=== PATIENT | male | born 1980 | race Caucasian/White ===

== ENCOUNTER 2020-06-19 21:56 | Emergency (ER) | payer OTHER, SELFPAY ==
--- NOTE | ~2020-06-19 | CT_ITS ---
EXAMINATION: CT abdomen pelvis w con EXAM DATE: 06/20/2020 00:27 INDICATION: Epigastric pain, RUQ TECHNIQUE: Spiral CT of the abdomen and pelvis was performed following intravenous injection of 100 m L Omnipaque 350. Axial, coronal and sagittal images were reviewed. The dose-length product (DLP) fo r this examination was 1260.28 mGy-cm. The exposure was tailored according to patient size (auto mA exposure control), and iterative reconstruction (ASIR) was used as additional dose reduction techniqu e. There is no prior study for comparison. FINDINGS: The liver, spleen, adrenal glands and pancreas are unremarkable. There are cholecystectomy clips. Portal and splenic veins are patent. Kidneys enhance symmetrically. There is no hydronephr osis. The prostate is unremarkable. The bladder is distended but otherwise unremarkable. There is no retroperitoneal or pelvic lymphadenopathy. Small umbilical and bilateral inguinal fat-containin g hernias. Small right-sided Bochdalek hernia. The appendix is normal. The stomach and small bowel are unremarkable. There is moderate amount of c olonic stool. No free intraperitoneal gas. The heart is normal in size. There are no pericardial or pleural effusions. The lung bases are unremarkable. The bones are unremarkable. IMPRESSION: 1. No acute intra-abdominal findings. Reviewed, dictated and finalized at location G. RESEARCH SCIENTIST
[2020-06-19 22:00] VITALS: BP 170/111; PULSE 97; RESP 20; TEMP 35.8; O2SAT 100
--- NOTE | 2020-06-19 22:26 | ECG_ITS ---
Measurements Intervals [place] Rate: 86 P: 44 [place]: 170 QRS: 37 QRSD: 78 T: -50 QT: 350 QTc: 420 Interpretive Statements SINUS RHYTHM POSSIBLE LEFT ATRIAL ENLARGEMENT ST-T WAVE ABNORMALITY IN ANTEROLAT/INF LEADS- CONSIDER ISCHEMIA BASELINE ARTIFACT- I, III, AVR ABNORMAL ECG Electronically Signed On 06-20-2020 6:31:19 JUNIOR LEGAL SECRETARY by Kendell Torres D.O.
[2020-06-19 22:39] LABS: Basophils Percent Auto 0.3 % (0.2-1.2); Eosinophils Absolute Auto 0.4 K/mm3 (0-0.3); Eosinophils Percent Auto 3.9 % (0-4.4); Hematocrit 43.6 % (42.0-52.0); Hemoglobin 15.3 g/dL (14.0-18.0); Immature Granulocyte Absolute 0.03 K/mm3 (0.00-0.031); Immature Granulocyte Percent A 0.3 % (0-0.5); Lymphocytes Absolute Auto 2.83 K/mm3 (0.9-3.2); Lymphocytes Percent Auto 31.4 % (18.3-44.2); Mean Corpuscular HGB Conc 35.1 g/dl (32-36); Mean Corpuscular Hemoglobin 30.4 pg (26-34); Mean Corpuscular Volume 86.7 fl (80-100); Mean Platelet Volume 10.5 fl (7.4-10.4); Monocytes Absolute Auto 0.8 K/mm3 (0.1-0.6); Monocytes Percent Auto 9.1 % (2.6-8.5); Platelet Count Result 308 k/mm3 (150-375); Red Blood Count 5.03 M/mm3 (4.6-6.20); Red Cell Distribution Width 11.9 % (11.5-14.5)
[2020-06-19 22:53] LABS: Alanine Aminotransferase 38 U/L (4-50); Albumin Level 4.8 g/dL (3.5-5.1); Alkaline Phosphatase 55 U/L (38-126); Anion Gap 10 mmol/L (8-16); Aspartate Amino Transferase 30 U/L (17-59); Bilirubin,Total 0.5 mg/dL (0.2-1.3); Blood Urea Nitrogen 15 mg/dL (9-20); Calcium 10.3 mg/dL (8.4-10.2); Carbon Dioxide 27 mmol/L (22-30); Chloride 101 mmol/L (98-107); Estimated CRCL calculation 147 ml/min; Estimated Glomerular Filt Rate > 60; Glucose 105 mg/dL (75-110); Lipase 250 U/L (23-300); Potassium 4.1 mmol/L (3.4-5.0); Sodium 138 mmol/L (137-145)
[2020-06-19 23:04] LABS: Troponin I < 0.012 ng/mL (0.000-0.034)
--- NOTE | 2020-06-19 23:07 | ED.ABDPAIN ---
HPI - Abdominal Pain General Chief Complaint: Abdominal Pain Stated Complaint: abd pain Time Seen by Provider: 06/19/20 23:06 History of Present Illness HPI narrative: RUQ and epigastric pain for the past few hours. Started in the RUQ and felt like pressure. Then moved to the middle and became more of a burning sensation. He thought he felt a lump there. The pain made him think of his biliary pain, but he no longer has a gall bladder. No fever, chills, vomiting. Related Data Allergies Allergy/AdvReac Type Severity Reaction Status Date / Time No Known Allergies Allergy Unknown Verified 06/19/20 22:03 Review of Systems Review of Systems: All systems reviewed & are unremarkable except as noted in HPI and below Constitutional: Constitutional: Denies chills and Denies fever(s) Cardiovascular: Cardiovascular: Denies chest pain Respiratory: Respiratory: Denies dyspnea Gastrointestinal: Gastrointestinal: Reports abdominal pain, Denies nausea and Denies vomiting Neurologic: Denies dizziness and Denies weakness [facility] Surgical History Surgical History (Updated 06/20/20 @ 02:43 by Bay Jeronimo MD) Hx of cholecystectomy Social History Social History (Updated 06/20/20 @ 02:43 by Bay Jeronimo MD) Gender identity (if verbalized by the patient): Male Exam Const: General: healthy appearing, no acute distress and alert Orientation/consciousness: patient oriented x3 HENMT: Head: normal to inspection Neck: Neck: normal visual inspection and no lymphadenopathy Chest: Chest palpation & inspection: no tenderness Resp: Effort & Inspection: normal respiratory effort Auscultation: clear to auscultation bilaterally, no rales, no rhonchi and no wheezes Cardio: Jugular venous distension: no JVD Rate: regular rate Rhythm: regular rhythm Heart sounds: no murmurs GI: Inspection: non-distended GI Palp: Yes Soft to palpation and Yes Tenderness to palpation present (GI) (epigastric) Skin: General skin exam: normal color Neuro: General: patient oriented x3 and moves all extremities Speech: normal speech Extrem: General: no edema Psych: Appearance: well kempt Affect: normal affect Course Vital Signs Vital signs: Vital Signs Temperature 35.8 C L 06/19/20 22:00 Pulse Rate 97 06/19/20 22:00 Respiratory Rate 20 06/19/20 22:00 Blood Pressure 170/111 H 06/19/20 22:00 Pulse Oximetry 100 06/19/20 22:00 Temperature 36.8 C 06/20/20 01:41 Pulse Rate 72 06/20/20 01:41 Respiratory Rate 16 06/20/20 01:41 Blood Pressure 151/82 H 06/20/20 01:41 Pulse Oximetry 95 06/20/20 01:41 MDM - Abdominal Pain Medical Records Attestation: I reviewed the patient's medical records. Lab Data Attestation: I reviewed the patient's lab results. Result diagrams: 06/19/20 22:27 06/19/20 22:27 Labs: Lab Results 06/19/20 06/19/20 06/19/20 Range/Units 22:27 22:27 22:27 WBC 9.0 (4.5-10.0) K/mm3 RBC 5.03 (4.6-6.20) M/mm3 Hgb 15.3 (14.0-18.0) g/dL Hct 43.6 (42.0-52.0) % MCV 86.7 (80-100) fl MCH 30.4 (26-34) pg MCHC 35.1 (32-36) g/dl RDW 11.9 (11.5-14.5) % Plt Count 308 (150-375) k/mm3 MPV 10.5 H (7.4-10.4) fl Immature Gran % (Auto) 0.3 (0-0.5) % Neut % (Auto) 55.0 (45.5-73.1) % Lymph % (Auto) 31.4 (18.3-44.2) % Elbert % (Auto) 9.1 H (2.6-8.5) % Eos % (Auto) 3.9 (0-4.4) % Baso % (Auto) 0.3 (0.2-1.2) % Lymph # (Auto) 2.83 (0.9-3.2) K/mm3 Elbert # (Auto) 0.8 H (0.1-0.6) K/mm3 Eos # (Auto) 0.4 H (0-0.3) K/mm3 Baso # (Auto) 0.0 (0.0-0.1) K/mm3 Abs Immat Gran (auto) 0.03 (0.00-0.031) K/mm3 Absolute Neuts (auto) 5.0 (1.3-6.7) K/mm3 Absolute Nucleated RBC 0.0 (0.0-0.012) K/mm3 Nucleated RBC % 0.0 (0.0-0.2) % Sodium 138 (137-145) mmol/L Potassium 4.1 (3.4-5.0) mmol/L Chloride 101 (98-107) mmol/L Carbon Dioxide 27 (22-30) mmol/L Ani
[2020-06-19 23:20] VITALS: BP 141/68; PULSE 89; RESP 26; O2SAT 99
[2020-06-20 01:41] VITALS: BP 151/82; PULSE 72; RESP 16; TEMP 36.8; O2SAT 95
== END 2020-06-20 01:42 | disposition home or self-care (01) ==
PROVIDERS: Emergency Medicine; Emergency Provider Emergency Medicine; PCP Internal Medicine
DX: R10.13 Epigastric pain (principal); R94.31 Abnormal electrocardiogram [ECG] [EKG]
CPT/HCPCS: 36415; 74177; 80053; 83690; 84484; 85025; 93005; 99284; A9270; Q9967

== ENCOUNTER 2021-08-17 00:20 | Emergency (ER) | payer SELFPAY ==
[2021-08-17] VITALS (7 sets, daily range): BP systolic 114–174; BP diastolic 69–107; PULSE 75–119; RESP 15–26; TEMP 36.4–36.7; O2SAT 94–100
--- NOTE | ~2021-08-17 | XR_ITS ---
EXAMINATION: XR chest 2V DATE: 08/17/2021 10:36 INDICATION: Chest pain. TECHNIQUE: Frontal and lateral views of the chest were obtained. COMPARISON: Chest 2 views 03/28/2014, CT abdomen and pelvis 06/20/2020 FINDINGS: The chest demonstrates clear lungs without pneumonia, pleural effusion, or pneumothorax. Th e heart size is normal. Surgical clips in the right upper quadrant are likely from cholecystectomy. T here is an old healed fracture of left clavicle. IMPRESSION: 1. No acute cardiopulmonary disease. Reviewed, dictated and finalized at location A. MOTIVE BRAKE ADJUSTER
--- NOTE | 2021-08-17 01:04 | ECG_ITS ---
Measurements Intervals [place] Rate: 100 P: 44 [place]: 167 QRS: 28 QRSD: 80 T: -52 QT: 341 QTc: 440 Interpretive Statements SINUS TACHYCARDIA LEFT ATRIAL ENLARGEMENT VOLTAGE CRITERIA FOR LVH ST-T WAVE ABNORMALITY IN ANTEROLAT/INF LEADS- CONSIDER ISCHEMIA BASELINE WANDER- II, III, AVR, AVF ABNORMAL ECG Electronically Signed On 08-17-2021 6:52:26 BONE COOKING OPERATOR by Kendell Torres D.O.
[2021-08-17 01:21] LABS: Basophils Absolute Auto 0.04 K/mm3 (0.00-0.10); Basophils Percent Auto 0.3 % (0.0-1.0); Eosinophils Percent Auto 0.7 % (1.0-6.0); Hematocrit 46.1 % (40.0-54.0); Hemoglobin 15.9 g/dL (14.0-18.0); Immature Granulocyte Absolute 0.05 K/mm3 (0.00-0.00); Immature Granulocyte Percent A 0.3 % (0.0-0.0); Lymphocytes Absolute Auto 3.16 K/mm3 (1.10-4.50); Lymphocytes Percent Auto 21.1 % (18.0-42.0); Mean Corpuscular HGB Conc 34.5 g/dL (32.0-36.0); Mean Corpuscular Hemoglobin 30.2 pg (27.0-31.0); Mean Corpuscular Volume 87.5 fL (78.0-102.0); Mean Platelet Volume 10.4 fl (8.7-11.0); Monocytes Absolute Auto 1.17 K/mm3 (0.10-0.90); Monocytes Percent Auto 7.8 % (2.0-11.0); Neutrophils Absolute Auto 10.4 K/mm3 (1.7-7.2); Neutrophils Percent Auto 69.8 % (50.0-70.0); Platelet Count Result 320 K/mm3 (150-420); Red Blood Count 5.27 M/mm3 (4.70-6.10); Red Cell Distribution Width 11.9 % (11.6-14.4)
[2021-08-17] MEDS: SODIUM CHLORIDE 0.9% IV 1,000 ML 999 ML IV CONT (01:26)
[2021-08-17 01:44] LABS: Alanine Aminotransferase 44 U/L (16-63); Albumin Level 4.2 g/dL (3.4-5.0); Alkaline Phosphatase 55 U/L (46-116); Anion Gap 14 mmol/L (8-16); Aspartate Amino Transferase 22 U/L (15-37); Bilirubin,Total 0.8 mg/dL (0.00-1.00); Blood Urea Nitrogen 13 mg/dL (7-18); Calcium 9.4 mg/dL (8.5-10.1); Carbon Dioxide 23 mmol/L (21-32); Chloride 101 mmol/L (98-108); Estimated CRCL calculation 117 ml/min; Estimated Glomerular Filt Rate > 60; Glucose 101 mg/dL (70-99); Osmolality Calculated 286 mOsm/kg (285-295); Potassium 3.4 mmol/L (3.5-5.1); Sodium 138 mmol/L (136-145); Total Protein 7.7 g/dL (6.4-8.2)
[2021-08-17 01:46] LABS: Ethanol < 3 mg/dL (0-6); Troponin I 248.4 ng/L (0.00-60.4)
--- NOTE | 2021-08-17 01:48 | PC.NURSE ---
Lab called over critical Ana Lilia on Pt. 248.4. MANPREET Galindo advised.
[2021-08-17 01:50] LABS: Lactic Acid Reflex 1.9 mmol/L (0.4-2.0)
--- NOTE | 2021-08-17 02:18 | ECG_ITS ---
Measurements Intervals [place] Rate: 91 P: 54 ID: 162 QRS: 47 QRSD: 92 T: -81 QT: 386 QTc: 476 Interpretive Statements SINUS RHYTHM POSSIBLE LEFT ATRIAL ENLARGEMENT ST-T WAVE ABNORMALITY IN ANTEROLAT/INF LEADS- CONSIDER ISCHEMIA ABNORMAL ECG Electronically Signed On 08-17-2021 6:52:51 BOX SPINNER by Kendell Torres D.O.
[2021-08-17 02:23] LABS: Appearance Urine Clear (Clear); Bilirubin Urine Negative (Negative); Color Urine Light Yellow (Yellow); Glucose Urine UA Negative (Negative); Ketones Urine Trace (Negative); Leukocyte Esterase Ur Negative (Negative); Nitrate Urine Negative (Negative); Protein Urine Negative (Negative); Specific Grav Ur 1.025 (1.010-1.020); Urobilinogen Urine 0.2 mg/dL (0.2-1.0); pH Urine 5.5 (5.0-8.0)
[2021-08-17 02:28] LABS: Add Urine Microscopic? YES; Bacteria Urine Trace /hpf; Blood Urine Trace-Intact (Negative); RBC Urine 0-2 /hpf (0-2); WBC Urine 0-3 /hpf (0-3)
[2021-08-17 02:30] LABS: Amphetamine Screen Urine Negative (Negative); Barbiturate Screen Urine Negative (Negative); Benzodiazepines Screen Urine Negative (Negative); Cannabinoid Screen Urine Negative (Negative); Cocaine Screen Urine Negative (Negative); Methadone Screen Urine Negative (Negative); Opiate Screen Urine Negative (Negative); Phencyclidine Screen Urine Negative (Negative)
[2021-08-17 02:56] LABS: Troponin I 241.1 ng/L (0.00-60.4)
--- NOTE | 2021-08-17 03:21 | PC.NURSE ---
Dr Marino called for consult on Pt. Awaiting CB.
--- NOTE | 2021-08-17 03:32 | PC.NURSE ---
Dr Wright reached. She spoke with DR Mateo CASE referance to Pt. Transfere call process started.
[2021-08-17] MEDS: ASPIRIN 325 MG ENTERIC TABLET PO (05:29)
[2021-08-17] MEDS: ENOXAPARIN 1 MG/KG 102 MG SUB-Q (05:37)
--- NOTE | 2021-08-17 07:11 | PC.NURSE ---
Pt report to Sondra DAVIS. Pt cont resting comfortable on stretcher no change in chest discomfort. Bed in low position and at bedside. Pt cont awaiting bed placement.
--- NOTE | 2021-08-17 07:38 | PC.NURSE ---
Pt resting on stretcher at this time. Pt has no needs. Pt upated waiting for a bed at this time. Lights turned off and pt resting on stretcher with call light in reach.
--- NOTE | 2021-08-17 08:17 | ED.GENADULT ---
HPI - General Adult General Chief complaint: Unspecified Stated complaint: Elevated BP Time Seen by Provider: 08/17/21 00:22 Source: patient and RN notes reviewed Mode of arrival: ambulatory Limitations: no limitations History of Present Illness Onset (ago): hour(s) (4) Location: chest Radiation: other (to left jaw and left upper limb, tingling.) Severity: mild Severity scale (1-10): 3 Quality: dull Pain Consistency: constant Relieving factors: none Exacerbating factors: none Associated symptoms: other (elevated BP.) Treatments prior to arrival: none Related Data Home Medications Medication Instructions Recorded Confirmed Renetta See Rx Instructions .ROUTE .COMPLEX 08/17/21 08/17/21 Allergies Allergy/AdvReac Type Severity Reaction Status Date / Time No Known Allergies Allergy Unknown Verified 06/19/20 22:03 Review of Systems Review of Systems: All systems reviewed & are unremarkable except as noted in HPI and below Constitutional: Constitutional: Reports as per HPI PMFSH Past Medical History Medical History Hypertension Surgical History Surgical History Hx of cholecystectomy Social History Social History Gender identity (if verbalized by the patient): Male Exam Const: General: cooperative, healthy appearing and comfortable Nutritional Appearance: well nourished Orientation/consciousness: patient oriented x3 Limitations: no limitations HENMT: Head: normal to inspection, normocephalic and atraumatic Ears: hearing grossly normal bilaterally, external ears normal and TM's normal bilaterally General nose exam: Normal external nose present and Normal nares present Face and sinus: normal facial exam Mouth: Yes Normal oral and palatal mucosa present, Yes lip normal, Yes tongue normal and Yes oropharynx normal Teeth and gingiva: dentition normal Throat: posterior oropharynx normal Eyes: General: appearance normal, both eyes and all related structures Pupils: Equal, round and reactive pupils present EOM: EOMs intact bilaterally Neck: Neck: normal visual inspection, full ROM and no lymphadenopathy Chest: Chest palpation & inspection: normal inspection of the chest Resp: Effort & Inspection: normal respiratory effort Auscultation: clear to auscultation bilaterally Cardio: Jugular venous distension: no JVD Palpation: normal PMI Rate: regular rate Rhythm: regular rhythm Heart sounds: S1 normal heart sound present and S2 normal heart sound present Peripheral pulses: Peripheral pulses 2+ throughout GI: Inspection: normal to inspection GI Palp: Yes Soft to palpation and No Tenderness to palpation present (GI) Percussion: Yes normal to percussion Auscultation: normal bowel sounds Back/Spine/Pelvis: Back: no CVA tenderness Thoracic/Lumbar Spine: thoracic and lumbar spine normal to inspection Pelvis: no pain with anterior-posterior compression Coccyx: no tenderness Skin: General skin exam: normal color Wounds: no wounds Hair: normal Nails: normal Neuro: General: patient oriented x3, moves all extremities and CN's II-XI intact bilaterally Cranial nerves: Yes CN's II-XII intact bilaterally, Yes Equal, round and reactive pupils present and Yes Bilaterally intact EOM present Cognition (Neuro): normal cognition Speech: normal speech Gait exam (Neuro): Normal gait present Motor exam (neuro): 5/5 motor strength present throughout Sensory Exam: normal sensation Extrem: General: normal to inspection, full ROM and capillary refill normal Psych: Appearance: grossly normal and well kempt Mental Status: mental status grossly normal Speech and movement: Normal speech and movement present Affect: normal affect Attitude: cooperative Thought process: Normal thought process present Thought content: Yes Normal thought content present Insight:
[2021-08-17 09:02] LABS: Troponin I 245.1 ng/L (0.00-60.4)
--- NOTE | 2021-08-17 09:03 | PC.NURSE ---
Pt elevated trop of 245.1 ERP Mateo made aware.
[2021-08-17 09:26] LABS: SARS-CoV-2 RNA PCR Negative (Negative)
--- NOTE | 2021-08-17 10:50 | PC.NURSE ---
Pt provided a sandwich and chips. Pt aware will be going to the floor for an ER hold.
--- NOTE | 2021-08-17 11:00 | PC.NURSE ---
Admitted to 227 for ER hold, patient states chest doesn't hurt but feels weird, weak almost, no sob noted, up in room, placed on telemetry and noted to be SR, no diaphoresis noted, oriented to room and call system
--- NOTE | 2021-08-17 13:09 | PC.NURSE ---
ate well for lunch, trying to nap at this time, telemetry SR
--- NOTE | 2021-08-17 14:12 | ECG_ITS ---
Measurements Intervals [place] Rate: 69 P: 62 [place]: 155 QRS: 57 QRSD: 87 T: -83 QT: 423 QTc: 454 Interpretive Statements SINUS RHYTHM WITH SINUS ARRHYTHMIA POSSIBLE LEFT ATRIAL ENLARGEMENT ST-T WAVE ABNORMALITY IN ANTEROLAT/INF LEADS- CONSIDER ISCHEMIA ABNORMAL ECG Electronically Signed On 08-17-2021 14:56:04 HAND HARDENER by Kendell Torres D.O.
--- NOTE | 2021-08-17 15:23 | PC.NURSE ---
pt reports no chest pain just a feeling of discomfort, given wipes for a bath on request, no other complaints at this time
--- NOTE | 2021-08-17 18:02 | PC.NURSE ---
pt ate 100% of dinner, is dropping him off some extra snacks
--- NOTE | 2021-08-17 19:32 | PC.NURSE ---
pt reports no pain but still feeling of uncomfortableness in chest, has brought snacks and they are in his room
--- NOTE | 2021-08-17 21:24 | PC.NURSE ---
pt is up walking halls, no c/o chest pain, tele shows pulse 88
--- NOTE | 2021-08-17 23:23 | PC.NURSE ---
Telemetry Reading: Sinus Rhythm to Sinus Julio; HR 60; [place] interval 0.18; QRS interval 0.07
--- NOTE | 2021-08-18 01:33 | PC.NURSE ---
Many hospitals called to see if any beds are available. See call attempt for transfers list. [facility] did add pt to waiting list at 01:17, and we must call again within 24 hours to keep pt on list.
--- NOTE | 2021-08-18 02:10 | PC.NURSE ---
Pt rounding complete. Pt is sleeping on his stomach with the call light within reach and the bed in the lowest position.
--- NOTE | 2021-08-18 02:21 | PC.NURSE ---
Kaci from [facility] called back to speak with the physician. Call transferred to Dr. Thakkar at 02:17 for pt info and possible bed availability.
--- NOTE | 2021-08-18 03:10 | PC.NURSE ---
This production underwriter just gave report to Sohail at [facility] for pt transfer. Documentation for transfer being prepared at this time.
[2021-08-18 03:48] VITALS: BP 123/85; PULSE 80; RESP 17; TEMP 36.8; O2SAT 99
--- NOTE | 2021-08-18 03:59 | PC.NURSE ---
Gerard was picked up by EMS at 03:50 with his belongings to be transferred to [facility]. VS stable and pt was cooperative and in good demeanor. Pt is to go to room room 6610A at the new facility.
== END 2021-08-18 03:50 | disposition short-term general hospital (02) ==
LOC: CHSED 08:49 → CHS2ND 10:06
PROVIDERS: Emergency Medicine; Emergency Provider Emergency Medicine
DX: I21.4 Non-ST elevation (NSTEMI) myocardial infarction (principal); I10 Essential (primary) hypertension; Z20.822 Contact with and (suspected) exposure to COVID-19
CPT/HCPCS: 36415; 71046; 80053; 80307; 81001; 83605; 84484; 85025; 93005; 96360; 96361; 96372; 99285; A9270; C9803; J1650; J7030; U0003; U0005

== ENCOUNTER 2022-11-12 23:23 | Emergency (ER) | payer BC, SELFPAY ==
--- NOTE | ~2022-11-12 | XR_ITS ---
Clinical Indication: Chest pressure, hypertension PA and lateral views of the chest: Comparison: 08/17/2021 Findings: The lungs are clear, without evidence of focal consolidation or pleural effusion. Cardiome diastinal silhouette is within normal limits. Bones and soft tissues are unremarkable. Impression: Normal chest. Reviewed, dictated and finalized at location . Impression: Normal chest.
--- NOTE | 2022-11-12 23:25 | ECG_ITS ---
Measurements Intervals [place] Rate: 79 P: 48 [place]: 163 QRS: 49 QRSD: 102 T: -82 QT: 394 QTc: 453 Interpretive Statements SINUS RHYTHM POSSIBLE LEFT ATRIAL ENLARGEMENT CANNOT RULE OUT SEPTAL INFARCT, AGE INDETERMINATE ST-T WAVE ABNORMALITY IN ANTEROLAT/INF LEADS- CONSIDER ISCHEMIA ABNORMAL ECG COMPARED TO ECG 08/17/2021 13:58:27 NO SIGNIFICANT CHANGES Electronically Signed On 11-13-2022 6:36:55 CDT by Kendell Torres D.O.
[2022-11-12 23:28] VITALS: BP 173/93; PULSE 85; RESP 20; TEMP 36.9; O2SAT 100
[2022-11-12 23:43] LABS: Basophils Percent Auto 0.2 % (0.2-1.2); Eosinophils Absolute Auto 0.2 K/mm3 (0-0.3); Eosinophils Percent Auto 2.8 % (0-4.4); Hematocrit 42.8 % (42.0-52.0); Immature Granulocyte Absolute 0.02 K/mm3 (0.00-0.031); Immature Granulocyte Percent A 0.2 % (0-0.5); Lymphocytes Absolute Auto 3.08 K/mm3 (0.9-3.2); Lymphocytes Percent Auto 37.3 % (18.3-44.2); Mean Corpuscular Hemoglobin 30.7 pg (26-34); Mean Corpuscular Volume 87.5 fl (80-100); Mean Platelet Volume 10.6 fl (7.4-10.4); Monocytes Absolute Auto 0.8 K/mm3 (0.1-0.6); Monocytes Percent Auto 9.1 % (2.6-8.5); Neutrophils Absolute Auto 4.2 K/mm3 (1.3-6.7); Neutrophils Percent Auto 50.4 % (45.5-73.1); Platelet Count Result 281 k/mm3 (150-375); Red Blood Count 4.89 M/mm3 (4.6-6.20); Red Cell Distribution Width 12.2 % (11.5-14.5); White Blood Count 8.3 K/mm3 (4.5-10.0)
[2022-11-12 23:56] LABS: Alanine Aminotransferase 41 U/L (6-50); Albumin Level 4.6 g/dL (3.5-5.1); Alkaline Phosphatase 55 U/L (38-126); Anion Gap 8 mmol/L (8-16); Aspartate Amino Transferase 32 U/L (17-59); Bilirubin,Total 0.7 mg/dL (0.2-1.3); Blood Urea Nitrogen 16 mg/dL (9-20); Calcium 9.3 mg/dL (8.4-10.2); Carbon Dioxide 26 mmol/L (22-30); Chloride 105 mmol/L (98-107); Estimated CRCL calculation 144 ml/min; Estimated Glomerular Filt Rate > 60; Glucose 127 mg/dL (65-110); Lipase 169 U/L (23-300); Potassium 3.6 mmol/L (3.4-5.0); Prothrombin Time 12.8 Seconds (11.1-14.7); Sodium 139 mmol/L (137-145)
[2022-11-12 23:57] LABS: Partial Thromboplastin Time 25.1 SECONDS (22.3-36.8)
[2022-11-13 00:08] LABS: Troponin I < 0.012 ng/mL (0.000-0.034)
[2022-11-13] MEDS: ASPIRIN 81 MG CHEWABLE TABLET 324 MG PO (02:28)
[2022-11-13] MEDS: NITROGLYCERIN SL 0.4 MG TABLET SUBLINGUAL (02:29)
[2022-11-13 03:01] LABS: Troponin I < 0.012 ng/mL (0.000-0.034)
--- NOTE | 2022-11-13 03:24 | ED.GENADULT ---
HPI - General Adult General Chief complaint: Chest Pain Stated complaint: chest pain Time Seen by Provider: 11/13/22 01:57 History of Present Illness HPI narrative: Patient 42-year-old gentleman who presents emerged from with chief complaint of chest discomfort. Patient reports that for the last week he has been having some pressure in his chest the patient states is pretty mild but states that he previously had an elevated troponin and was seen by cardiology had a stress test that was negative did not have a cardiac cath at that time. The patient states that the pain is not improved by anything reports that he had no diaphoresis denies radiation to his arm. Related Data Home Medications Medication Instructions Recorded Confirmed Renetta See Rx Instructions .Route .COMPLEX 08/17/21 08/17/21 Allergies Allergy/AdvReac Type Severity Reaction Status Date / Time No Known Allergies Allergy Unknown Verified 06/19/20 22:03 Review of Systems Review of Systems: A 10 system review of systems was completed on the patient and is negative except for what is stated in the HPI. Nursing and ancillary documentation was reviewed. [facility] Past Medical History Medical History Hypertension Surgical History Surgical History Hx of cholecystectomy Social History Social History Gender identity (if verbalized by the patient): Male Exam Narrative: GENERAL: Well-appearing, well-nourished, and in no acute distress. HEAD: Normocephalic, atraumatic. EYES: PERRLA and EOMI. ENT: Nares clear, no rhinorrhea or epistaxis. Mucous membranes moist. NECK: Supple. CHEST: Clear to auscultation. No respiratory distress. HEART: Regular rate and rhythm. No murmur heard. Normal peripheral pulses. ABDOMEN: Soft, nontender, nondistended, normal active bowel sounds. EXTREMITIES: Normal range of motion. No edema. SKIN: Warm, dry, no rash. NEURO: No focal deficits. Alert and oriented x3. PSYCH: Normal mood and affect. Course Vital Signs Vital signs: Vital Signs Temperature 36.9 C 11/12/22 23:28 Pulse Rate 85 11/12/22 23:28 Respiratory Rate 20 11/12/22 23:28 Blood Pressure 173/93 H 11/12/22 23:28 Pulse Oximetry 100 11/12/22 23:28 Oxygen Delivery Room Air 11/12/22 23:28 Temperature 36.9 C 11/12/22 23:28 Pulse Rate 85 11/12/22 23:28 Respiratory Rate 20 11/12/22 23:28 Blood Pressure 173/93 H 11/12/22 23:28 Pulse Oximetry 100 11/12/22 23:28 Oxygen Delivery Room Air 11/12/22 23:28 Medical Decision Making MDM Narrative Medical decision making narrative: Differential diagnosis includes ACS, atypical chest pain, stable angina, pneumothorax, EKG shows sinus rhythm rate of [address] elevations similar to previous EKGs. Labs obtained that showed 2 troponins of less than 0.012 CBC and electrolytes are within normal limits Initial plan was to give the patient nitroglycerin with the patient has taken Viagra recently. Patient will be given a GI cocktail Patient has 2 negative troponins and plan will be for the patient to follow-up as an outpatient Vital Signs Vital Signs: Vital Signs Temperature 36.9 C 11/12/22 23:28 Pulse Rate 85 11/12/22 23:28 Respiratory Rate 20 11/12/22 23:28 Blood Pressure 173/93 H 11/12/22 23:28 Pulse Oximetry 100 11/12/22 23:28 Oxygen Delivery Room Air 11/12/22 23:28 Temperature 36.9 C 11/12/22 23:28 Pulse Rate 85 11/12/22 23:28 Respiratory Rate 20 11/12/22 23:28 Blood Pressure 173/93 H 11/12/22 23:28 Pulse Oximetry 100 11/12/22 23:28 Oxygen Delivery Room Air 11/12/22 23:28 Lab Data 11/12/22 23:38 11/12/22 23:38 Labs: Lab Results 11/12/22 11/12/22 11/12/22 Range/Units 23:38 23:38 23:38 WBC 8.3 (4.5-10.0) K/mm3 RBC
[2022-11-13] MEDS: BELLADONNA ALK/PHENOB ELIX 10 ML, MAG HYDROX/ALUMINUM HYD/SIMETH 30 ML, LIDOCAINE HCL 2... PO (03:29)
== END 2022-11-13 04:41 | disposition home or self-care (01) ==
PROVIDERS: Emergency Provider Emergency Medicine
DX: R07.89 Other chest pain (principal); I10 Essential (primary) hypertension; R94.31 Abnormal electrocardiogram [ECG] [EKG]
CPT/HCPCS: 36415; 71046; 80053; 83690; 84484; 85025; 85610; 85730; 93005; 99284; A9270